=== PATIENT | female | born 1980 | race African-American/Black ===

== ENCOUNTER 2018-11-07 13:55 | Emergency (ER) | payer SELFPAY ==
[~2018-11-07] VITALS: Ht 165.1 cm; Wt 118.2 kg
[2018-11-07 14:05] VITALS: BP 145/97; Ht 165.1 cm; Wt 118.2 kg
[2018-11-07 14:43] LABS: BASOPHILS 0.5 % (0-2); EOSINOPHILS 0.8 % (0-7); HEMATOCRIT 43.4 % (36.0-48.0); HEMOGLOBIN 14.6 g/dL (12-16); IMMATURE GRANULOCYTES 0.2 % (0-5); LYMPHOCYTES 20.3 % (15-50); MCH 27.9 pg (26.0-34.0); MCHC 33.6 g/dL (31.0-37.0); MEAN PLATELET VOLUME 10.8 fL (7.4-10.4); MONOCYTES 4.7 % (2-11); NEUTROPHILS 73.5 % (40-80); PLATELET COUNT 236 10x3/uL (130-400); RBC 5.23 10x6/uL (4.00-5.40); RDW 13.6 % (11.5-14.5); WBC 8.5 10x3/uL (4.8-10.8)
[2018-11-07 14:55] LABS: ALBUMIN 3.3 g/dL (3.4-5.0); ANION GAP 14.6 mmol/L (8-16); BILIRUBIN - TOTAL 0.47 mg/dL (0.2-1.3); CALCIUM 8.4 mg/dL (8.5-10.1); CARBON DIOXIDE 22.5 mmol/L (21.0-32.0); CREATININE - SERUM 0.9 mg/dL (0.6-1.3); POTASSIUM - SERUM 4.1 mmol/L (3.5-5.1); PROTEIN - SERUM 7.5 g/dL (6.4-8.2)
[2018-11-07] MEDS ORDERED: EC-NAPROSYN500 MG PO (15:34)
[2018-11-07] MEDS ORDERED: ZOFRAN4 MG PO (15:34)
[2018-11-07] MEDS ORDERED: MACROBID100 MG PO (15:34)
[2018-11-07 15:52] LABS: EPITHELIAL CELLS 0-5 /hpf (0-5); RED CELLS - URINE 0-5 /hpf (0-5); WHITE CELLS - URINE 0-5 /hpf (0-5)
[2018-11-07 15:53] LABS: BACTERIA FEW /hpf (NONE SEEN)
== END 2018-11-07 15:53 | disposition home or self-care (01) ==
LOC: D.ER 13:55
PROVIDERS: Emergency Medicine
DX: M54.5 Low back pain (principal); N39.0 Urinary tract infection, site not specified; E11.9 Type 2 diabetes mellitus without complications; I10 Essential (primary) hypertension; F17.200 Nicotine dependence, unspecified, uncomplicated